=== PATIENT | female | born 1930 | race African-American/Black ===

== ENCOUNTER 2017-01-05 10:15 | Emergency (ER) | payer MEDICARE, MEDICAID ==
[~2017-01-05] VITALS: Ht 157.5 cm; Wt 54.0 kg
[~2017-01-05 10:15] MED LIST: FERR324T4 PO; FLEC1.3D4 TOP; KCL20 PO; MAXZ PO; NEXI20CA PO; ONDA4TAB7 PO; PERI8.6T PO; TRAM50 PO; VITA500S3 PO
[2017-01-05 10:18] VITALS: BP 204/88; PULSE 86; RESP 20; TEMP 98; O2SAT 98
[2017-01-05 10:51] VITALS: BP 179/74; PULSE 73; RESP 18; O2SAT 100
--- NOTE | 2017-01-05 11:07 | PD ---
HPI Chief Complaint: Block Placer Problem/Complaint Time Seen by Provider: 10:48 Travel History International Travel<30 days: No Contact w/Intl Traveler<30days: No Traveled to known affect area: No History of Present Illness HPI This is a 86-year-old female who presents today with complaints of vaginal spotting yesterday. Patient also complaining of left upper abdominal/rib pain. The patient denies any shortness of breath. The patient denies any upper chest pain. She reports that pain in her upper abdomen as a 7 out of 10 on the pain scale. She reports the pain comes and goes. She reports sharp pain. Patient also reports intermittent discomfort in her pelvic area. When asked if she had spotted previously, daughter is at the bedside states she had an episode of vaginal spotting several years ago when she had a Pap smear but has not had any since then. The patient is status post hysterectomy. There are no other complaints the time of my examination. PFSH Past Medical History Arthritis: Yes Cancer: No Cardiovascular Problems: No Diabetes: No Diminished Hearing: No Endocrine: No Gastrointestinal Disorders: Yes (GERD) GERD: Yes Genitourinary: No Hepatitis: No Hiatal Hernia: No Hypertension: Yes Immune Disorder: No Musculoskeletal: Yes (ARTHRITIS, TRIGGER FINGERS) Neurologic: No Psychiatric: No Reproductive: No Respiratory: No Immunizations Current: Yes Thyroid Disease: No Menopausal: Yes : 5 Past Surgical History Abdominal Surgery: Yes (CHOLECYSTECTOMY) AICD: No Cardiac Surgery: No Cholecystectomy: Yes Ear Surgery: No Eye Surgery: Yes (LEFT CATARACT EXTR) Genitourinary Surgery: No Gynecologic Surgery: Yes (HYSTERECTOMY) Hysterectomy: Yes Joint Replacement: No Oral Surgery: No Pacemaker: No Thoracic Surgery: No Other Surgery: Yes (GROWTH REMOVED LEFT AXILLA AND BACK OF HEAD) Social History Alcohol Use: No Tobacco Use: No Substance Use: No Allergies-Medications (Allergen,Severity, Reaction): Coded Allergies: Lortab (Verified Allergy, Severe, 01/05/17) Percocet (Verified Allergy, Severe, 01/05/17) Codeine (Verified Adverse Reaction, Severe, 01/05/17) STOMACH HURTS Morphine (Verified Adverse Reaction, Severe, 01/05/17) HURTS ALL OVER Tylenol (Verified Adverse Reaction, Severe, Nausea/Vomiting, 01/05/17) CAUSES WORSE PAIN Reported Meds & Prescriptions Reported Meds & Active Scripts Active Ultram (Tramadol HCl) 50 Mg Tab 50 Mg PO TID PRN Mitra-Colace 8.6-50 mg (Sennosides-Docusate Sodium) 1 Tab Tab 1 Tab PO BID PRN Ferrous Sulfate 325 Mg Tab 325 Mg PO BID Ondansetron Odt (Ondansetron HCl) 4 Mg Tab 4 Mg PO Q4H PRN Maxzide (Triamterene/HCTZ) 75 Mg/50 Mg Tab 1 Tab PO DAILY Flector (Diclofenac Epolamine) 1.3 % Dis 1 Patch TOP BID PRN Apply to painful joint- ok to cut patch Nexium (Esomeprazole Magnesium) Esomeprazole Magnesium 20 mg Cap 20 Mg PO DAILY PRN Reported Kcl 20 Meq Tab (Potassium Chloride) 20 Meq Tabcr 20 Meq PO DAILY Vitamin B-12 (Cyanocobalamin) 500 Mcg Jesica 500 Mcg PO DAILY Review of Systems Except as stated in HPI: all other systems reviewed are Neg General / Constitutional: No: Fever HENT: No: Headaches, Neck Pain Cardiovascular: No: Chest Pain or Discomfort (left upper abdominal area.), Palpitations, Irregular Rhythm Respiratory: No: Cough, Shortness of Breath Gastrointestinal: Positive: Abdominal Pain (left upper abdominal), No: Nausea , Vomiting Genitourinary: Positive: Vaginal Bleeding (spotting yesterday, none today.), No: Dysuria Musculoskeletal: No: Weakness, Pain Neurologic: No: Weakness, Dizziness, Headache Physical Exam Narrative GENERAL: Well-nourished, well-developed patient, in no acute respiratory distress. SKIN: Warm and dry. HEAD: Normocephalic/atraumatic. EYES: No scleral icterus. No injection or drainage. NECK: Supple, trachea midline. CARDIOVASCULAR: Regular rate and rhythm without murmurs, gallops, or rubs. RESPIRATORY: Breath sounds equal bilaterally. No accessory muscle use. GASTROINTESTINAL: Abdomen soft, non-tender, nondistended. She has subjective tenderness in her left upper abdomen. There are no masses appreciated on exam. There is no rebound or guarding. GENITOURINARY: MUSCULOSKELETAL: No cyanosis, or edema. NEUROLOGICAL: Awake and alert. Cranial nerves II through XII intact. Motor grossly within normal limits. Five out of 5 muscle strength in all muscle groups. Normal speech. Data Data Last Documented VS Vital Signs Date Time Temp Pulse Resp B/P Pulse Ox O2 Delivery O2 Flow Rate FiO2 01/05/17 12:24 78 16 155/72 100 Room Air 01/05/17 10:18 98.0 Orders Complete Blood Count With Diff (01/05/17 10:48) Basic Metabolic Panel (Bmp) (01/05/17 10:48) Urinalysis - C+S If Indicated (01/05/17 10:48) Prothrombin Time / Inr (Pt) (01/05/17 10:48) Act Partial Throm Time (Ptt) (01/05/17 10:48) Electrocardiogram (01/05/17 11:00) Ckmb (Isoenzyme) Profile (01/05/17 11:00) Troponin I (01/05/17 11:00) Chest, Single Ap (01/05/17 11:00) Us Pelvis Comp W Transvaginal (01/05/17 10:48) Lipase (01/05/17 11:05) CKMB (01/05/17 11:05) CKMB% (01/05/17 11:05) Potassium Chloride (Kcl) (01/05/17 15:00) Labs Laboratory Tests Test 01/05/17 01/05/17 11:05 11:09 White Blood Count 7.3 TH/MM3 Red Blood Count 4.47 MIL/MM3 Hemoglobin 11.9 GM/DL Hematocrit 35.7 % Mean Corpuscular Volume 79.9 FL Mean Corpuscular Hemoglobin 26.6 PG Mean Corpuscular Hemoglobin 33.3 % Concent Red Cell Distribution Width 14.5 % Platelet Count 280 TH/MM3 Mean Platelet Volume 8.7 FL Neutrophils (%) (Auto) 41.6 % Lymphocytes (%) (Auto) 48.0 % Monocytes (%) (Auto) 8.7 % Eosinophils (%) (Auto) 1.1 % Basophils (%) (Auto) 0.6 % Neutrophils # (Auto) 3.0 TH/MM3 Lymphocytes # (Auto) 3.5 TH/MM3 Monocytes # (Auto) 0.6 TH/MM3 Eosinophils # (Auto) 0.1 TH/MM3 Basophils # (Auto) 0.0 TH/MM3 CBC Comment DIFF FINAL Differential Comment Prothrombin Time 10.7 SEC Prothromb Time International 1.0 RATIO Ratio Activated Partial 24.5 SEC Thromboplast Time Sodium Level 133 MEQ/L Potassium Level 3.4 MEQ/L Chloride Level 97 MEQ/L Carbon Dioxide Level 31.3 MEQ/L Anion Gap 5 MEQ/L Blood Urea Nitrogen 8 MG/DL Creatinine 0.78 MG/DL Estimat Glomerular Filtration 85 ML/MIN Rate Random Glucose 96 MG/DL Calcium Level 9.4 MG/DL Total Creatine Kinase 110 U/L Creatine Kinase MB LESS THAN 0.5 NG/ML Troponin I LESS THAN 0.02 NG/ML Lipase 173 U/L Urine Color YELLOW Urine Turbidity CLEAR Urine pH 8.0 Urine Specific [place] 1.009 Urine Protein NEG mg/dL Urine Glucose (UA) NEG mg/dL Urine Ketones NEG mg/dL Urine Occult Blood NEG Urine Nitrite NEG Urine Bilirubin NEG Urine Urobilinogen LESS THAN 2.0 MG/DL Urine Leukocyte Esterase MOD Urine RBC 2 /hpf Urine WBC 1 /hpf Urine Squamous Epithelial 2 /hpf Cells Urine Mucus FEW /lpf Microscopic Urinalysis Comment CULT NOT INDICATED MDM Medical Decision Making Medical Screen Exam Complete: Yes Emergency Medical Condition: Yes Interpretation(s) Last 24 hours Impressions Chest X-Ray 01/05/17 1100 Signed Impressions: Service Date/Time: Thursday, January 05, 2017 11:17 - CONCLUSION: Abnormal lung exam. The masslike area seen within the left upper lung with adjacent pulmonary nodules remains of concern for neoplasm, however, given the slow progression of disease this could represent a persistent inflammatory process. Viri Hall MD Pelvis Ultrasound 01/05/17 1048 Signed Impressions: Service Date/Time: Thursday, January 05, 2017 11:47 - CONCLUSION: No evidence of mass or free fluid. Viri Hall MD Differential Diagnosis Cervical bleeding versus hemorrhagic cystitis versus vaginal bleeding Pancreatitis versus ACS versus peptic ulcer disease Narrative Course 86-year-old female presents with complaints of vaginal bleeding. The patient had one episode of spotting earlier today. The patient is status post hysterectomy. A pelvic ultrasound was was ordered and there were no obvious pelvic masses appreciated. Please note that the pelvic ultrasound utilized vaginal probe and there was no blood noted on the vaginal probe. Pelvic exam was deferred secondary to this. The patient does have a pulmonary mass which is again evident on her chest x-ray. They are aware of that in our following this. The patient had left upper epigastric discomfort. Laboratory tests are negative at this point. EKG shows no acute ST elevation or depression. Cardiac enzymes are negative. I discussed the findings with both the patient and the daughter and they are in the process of following up with a new primary care physician, Dr. Elisa Gilliland. I did recommend that they continue to have that lung mass followed. I also recommended that she see a [employer] physician for formal Pap smear. Urinalysis shows no evidence of acute infection. She is encouraged to restart her Nexium as she reports that she had similar left upper abdominal discomfort that was controlled with Nexium in the past. Diagnosis Primary Impression: vaginal spotting, resolved Additional Impressions: epigastric pain with history of peptic ulcer disease. Mass of left lung left lung mass. Additional Instructions: Follow up with primary care physician. Important to have primary care physician follow lung mass. Also recommend following up with [employer] physician for the vaginal spotting. Return if pain returns or persists or gets worse. Recommend cardiology follow up as well. Increase potassium rich foods. Disposition: 01 DISCHARGE HOME Condition: Stable Bryon Dhillon MD Jan 05, 2017 11:07
[2017-01-05 11:29] LABS: BASOPHIL % 0.6 % (0.0-2.0); EOSINOPHIL # 0.1 TH/MM3 (0-0.4); EOSINOPHIL % 1.1 % (0.0-4.0); HEMATOCRIT 35.7 % (35.0-46.0); HEMO FLAGS DIFF FINAL; LYMPHOCYTE # 3.5 TH/MM3 (1.0-4.8); MEAN CELL VOLUME 79.9 FL (80.0-100.0); MEAN CORPUSCULAR HEMOGLOBIN 26.6 PG (27.0-34.0); MEAN CORPUSCULAR HGB CONC 33.3 % (32.0-36.0); MONO % 8.7 % (0.0-8.0); NEUT % 41.6 % (16.0-70.0); PLATELET COUNT 280 TH/MM3 (150-450); RED BLOOD COUNT 4.47 MIL/MM3 (4.00-5.30); RED CELL DISTRIBUTION WIDTH 14.5 % (11.6-17.2); WHITE BLOOD COUNT 7.3 TH/MM3 (4.0-11.0)
[2017-01-05 11:36] LABS: APTT (PATIENT) 24.5 SEC (24.3-30.1); PROTHROMBIN TIME - PATIENT 10.7 SEC (9.8-11.6)
[2017-01-05 11:37] LABS: BLOOD, URINE NEG (NEG); COMMENT (UR) CULT NOT INDICATED; CULTURE IF INDICATED CULT NOT INDICATED; GLUCOSE,URINE NEG (NEG); KETONE, URINE NEG (NEG); MUCUS URINE FEW /lpf (OCC); NITRITE,URINE NEG (NEG); SQUAMOUS EPITHELIAL CELL URINE 2 /hpf (0-5); URINE COLOR YELLOW (YELLW/STRAW)
--- NOTE | 2017-01-05 11:40 | RADRPT ---
EXAM DATE/TIME: 01/05/2017 11:17 [facility] COMPARISON: CHEST PA & LAT, December 05, 2014, 9:48. CT THORAX W CONTRAST, March 23, 2013, 20:44. CHEST SINGLE A P, March 23, 2013, 19:08. INDICATIONS : Chest Pain under left breast area MEDICAL HISTORY : None. SURGICAL HISTORY : None. ENCOUNTER: Initial ACUITY: 1 day PAIN SCORE: 8/10 LOCATION: Left chest FINDINGS: Portable AP upright view of the chest again demonstrates an abnormal irregular ovoid area of parenchy mal increased density adjacent to the left upper lung which appears slightly more prominent as compar ed to the initial exam at 2012 but not significantly changed as compared to the exam of November 2014 . There are multiple centimeters sized nodular densities identified within the left hemithorax which appear new from 2012 and more prominent as compared to the exam at 2014. Given the chronicity of thes e findings this may reflect a progressive inflammatory process and makes neoplasm less likely unless currently under treatment. Correlation with patient's medical history is needed. The right hemithorax is clear. The heart size is normal. Osseous structures are unremarkable. CONCLUSION: Abnormal lung exam. The masslike area seen within the left upper lung with adjacent pulmonary nodules remains of concern for neoplasm, however, given the slow progression of disease this could represent a persistent inflammatory process. Viri Hall MD on January 05, 2017 at 11:33 Board Certified Radiologist. This report was verified electronically.
[2017-01-05 11:44] LABS: BICARBONATE 31.3 MEQ/L (21.0-32.0); POTASSIUM 3.4 MEQ/L (3.5-5.1)
[2017-01-05 12:24] VITALS: BP 155/72; PULSE 78; RESP 16; O2SAT 100
--- NOTE | 2017-01-05 12:49 | RADRPT ---
EXAM DATE/TIME: 01/05/2017 11:47 [facility] COMPARISON: No previous studies available for comparison. INDICATIONS : Vaginal bleeding post menopausal. MEDICAL HISTORY : Gastroesophageal reflux disease. Hypertension. . Right cataract. Ectopic . Arthriti s. Skin cancer. Measles. SURGICAL HISTORY : Hysterectomy. Cholecystectomy. Left cataract removal. Growth removal from left axilla and back of t he head. ENCOUNTER: Initial ACUITY: 1 day PAIN SCORE: 0/10 LOCATION: Bilateral pelvis MEASUREMENTS: UTERUS: Surgically absent RIGHT OVARY: Non visualized LEFT OVARY: Non visualized FINDINGS: Transabdominal and transvaginal imaging of the pelvis is performed. The uterus is surgically absent a nd the ovaries are not visualized and are likely surgically absent. There is no abnormality seen to a ccount for the patient's clinical presentation. No ultrasound evidence of mass and no evidence of trevor e fluid. CONCLUSION: No evidence of mass or free fluid. Viri Hall MD on January 05, 2017 at 12:46 Board Certified Radiologist. This report was verified electronically.
[2017-01-05 13:48] LABS: CREATINE KINASE 110 U/L (26-192)
[2017-01-05 14:00] LABS: CKMB LESS THAN 0.5 NG/ML (0.5-3.6)
[2017-01-05] MEDS ORDERED: POTASSIUM CHLORIDE 10 MEQ CONTROLLED RELEASE TAB PO ONE (15:00)
[2017-01-05 15:39] VITALS: BP 123/63
--- NOTE | 2017-01-07 12:55 | EKG ---
Date Performed: 01/05/2017 Time Performed: 11:26:56 PTAGE: 86 years EKG: Sinus rhythm LOW QRS VOLTAGE IN PRECORDIAL LEADS MINIMAL VOLTAGE CRITERIA FOR LVH, CONSIDER NORMAL VARIANT BORDER LINE ECG PREVIOUS TRACING : 01/30/2015 13.17 Compared to prior tracing no significant change DOCTOR: Eddie Gu Interpretating Date/Time 01/07/2017 12:52:59
[2017-04-09] MEDS ORDERED: TRIA1TAB5 PO (12:17)
== END 2017-01-05 15:40 | disposition home or self-care (01) ==
LOC: NEPE 10:15
DX: R10.13 Epigastric pain (principal); R91.8 Other nonspecific abnormal finding of lung field; I10 Essential (primary) hypertension
CPT/HCPCS: 71010; 76830; 76856; 80048; 81001; 82550; 82552; 83690; 84484; 85025; 85610; 85730; 93005

== ENCOUNTER → 2017-04-22 | Outpatient (CLI) | payer MEDICARE, MEDICAID ==
[~2017-04-22] MED LIST changes: +AMOX875T PO; +ERGO1CAP30 PO; -FERR324T4 PO; -FLEC1.3D4 TOP; -KCL20 PO; -MAXZ PO; -NEXI20CA PO; +OMEP40CA2 PO; -ONDA4TAB7 PO; -PERI8.6T PO; +POTA-163 PO; -TRAM50 PO; +TRAM50TA PO; +TRIA1TAB5 PO; -VITA500S3 PO
[2017-04-22 10:27] LABS: AUTOMATED NEUTROPHIL # 2.9 TH/MM3 (1.8-7.7); BASOPHIL % 0.5 % (0.0-2.0); EOSINOPHIL # 0.2 TH/MM3 (0-0.4); EOSINOPHIL % 2.3 % (0.0-4.0); HEMATOCRIT 35.4 % (35.0-46.0); HEMO FLAGS DIFF FINAL; LYMPH % 51.2 % (9.0-44.0); MEAN CELL VOLUME 79.1 FL (80.0-100.0); MEAN CORPUSCULAR HEMOGLOBIN 26.3 PG (27.0-34.0); MEAN CORPUSCULAR HGB CONC 33.2 % (32.0-36.0); MONO % 8.3 % (0.0-8.0); NEUT % 37.7 % (16.0-70.0); PLATELET COUNT 296 TH/MM3 (150-450); RED BLOOD COUNT 4.47 MIL/MM3 (4.00-5.30); RED CELL DISTRIBUTION WIDTH 14.8 % (11.6-17.2); WHITE BLOOD COUNT 7.7 TH/MM3 (4.0-11.0)
[2017-04-22 10:31] LABS: BACTERIA, URINE RARE /hpf; BLOOD, URINE NEG (NEG); COMMENT (UR) CULT NOT INDICATED; CULTURE IF INDICATED CULT NOT INDICATED; GLUCOSE,URINE NEG (NEG); KETONE, URINE NEG (NEG); NITRITE,URINE NEG (NEG); SQUAMOUS EPITHELIAL CELL URINE <1 /hpf (0-5); URINE COLOR YELLOW (YELLW/STRAW)
[2017-04-22 10:59] LABS: ANION GAP 9 MEQ/L (5-15); AST (GOT) 15 U/L (15-37); BICARBONATE 28.4 MEQ/L (21.0-32.0); BLOOD UREA NITROGEN 7 MG/DL (7-18); CHLORIDE 99 MEQ/L (98-107); GLOMERULAR FILTRATION RATE 86 ML/MIN (>89); GLUCOSE,FASTING 86 MG/DL (74-99); MAGNESIUM 1.6 MG/DL (1.5-2.5); POTASSIUM 3.2 MEQ/L (3.5-5.1); SODIUM (NA) 136 MEQ/L (136-145)
[2017-04-22 11:25] LABS: ALKALINE PHOSPHATASE 108 U/L (45-117); ALT (GPT) 14 U/L (10-53); FREE T4 1.18 NG/DL (0.76-1.46); HDL CHOLESTEROL 51.8 MG/DL (40.0-60.0); LDL CHOLESTEROL 107 MG/DL (0-99); TOTAL BILIRUBIN ADULT 1.2 MG/DL (0.2-1.0)
== END ==
LOC: CLAB 09:31
PROVIDERS: ATTEND Family Medicine
DX: I10 Essential (primary) hypertension (principal); E53.8 Deficiency of other specified B group vitamins; R53.83 Other fatigue; E87.6 Hypokalemia
CPT/HCPCS: 36415; 80053; 80061; 81001; 82306; 82607; 83735; 84439; 84443; 85025

== ENCOUNTER → 2017-11-13 | Outpatient (CLI) | payer MEDICARE, MEDICAID ==
[~2017-11-13] MED LIST changes: -AMOX875T PO; +CHOL1CAP8 PO; -ERGO1CAP30 PO; +NEXI20CA PO; -OMEP40CA2 PO
[2017-11-13 10:58] LABS: BASOPHIL % 0.4 % (0.0-2.0); EOSINOPHIL # 0.2 TH/MM3 (0-0.4); HEMATOCRIT 34.6 % (35.0-46.0); HEMOGLOBIN 11.8 GM/DL (11.6-15.3); LYMPH % 47.5 % (9.0-44.0); LYMPHOCYTE # 3.6 TH/MM3 (1.0-4.8); MEAN CELL VOLUME 81.3 FL (80.0-100.0); MEAN CORPUSCULAR HEMOGLOBIN 27.7 PG (27.0-34.0); MEAN PLATELET VOLUME 8.2 FL (7.0-11.0); MONO % 8.9 % (0.0-8.0); MONOCYTE # 0.7 TH/MM3 (0-0.9); NEUT % 40.2 % (16.0-70.0); PLATELET COUNT 271 TH/MM3 (150-450); RED BLOOD COUNT 4.25 MIL/MM3 (4.00-5.30); RED CELL DISTRIBUTION WIDTH 14.6 % (11.6-17.2); WHITE BLOOD COUNT 7.5 TH/MM3 (4.0-11.0)
[2017-11-13 11:24] LABS: ALBUMIN 3.5 GM/DL (3.4-5.0); ALT (GPT) 11 U/L (10-53); AST (GOT) 14 U/L (15-37); BICARBONATE 32.8 MEQ/L (21.0-32.0); BLOOD UREA NITROGEN 12 MG/DL (7-18); CHLORIDE 98 MEQ/L (98-107); CREATININE 0.73 MG/DL (0.50-1.00); GLOMERULAR FILTRATION RATE 92 ML/MIN (>89); GLUCOSE,FASTING 90 MG/DL (74-99); SODIUM (NA) 136 MEQ/L (136-145)
[2017-11-13 11:26] LABS: ALKALINE PHOSPHATASE 115 U/L (45-117); TOTAL BILIRUBIN ADULT 1.1 MG/DL (0.2-1.0); TOTAL PROTEIN 7.3 GM/DL (6.4-8.2)
== END ==
LOC: CLAB 10:35
PROVIDERS: ATTEND Physician Assistant Medical
DX: I10 Essential (primary) hypertension (principal); E55.9 Vitamin D deficiency, unspecified
CPT/HCPCS: 36415; 80053; 82306; 85025